=== PATIENT | male | born 1960 | race Caucasian/White ===

== ENCOUNTER → 2025-06-10 | Outpatient (CLI) | payer MEDICARE, OTHER ==
--- NOTE | 2025-06-10 11:52 | US ---
EXAMINATION TYPE: US carotid duplex BILAT DATE OF EXAM: 06/10/2025 COMPARISON: NONE CLINICAL INDICATION: Male, 65 years old with history of I65.23 CAROTID STENOSIS Z82.49 FAM HX ISCHEM HRT; Patient does not have HTN, high cholesterol, and does not smoke. Family history of heart disease . Additional History: .... TECHNIQUE: Grayscale, color Doppler and spectral Doppler evaluation of the bilateral carotid systems and vertebral arteries. Indirect Doppler criteria was utilized. FINDINGS: EXAM MEASUREMENTS: RIGHT: Peak Systolic Velocity (PSV) cm/sec ----- Right CCA: 65.1 ----- Right ICA: 65.1 ----- Right ECA: 91.9 ICA/CCA ratio: 1.0 RIGHT: End Diastole cm/sec ----- Right CCA: 18.0 ----- Right ICA: 19.7 ----- Right ECA: 14.9 LEFT: Peak Systolic Velocity (PSV) cm/sec ----- Left CCA: 79.0 ----- Left ICA: 76.5 ----- Left ECA: 73.8 ICA/CCA ratio: 1.0 LEFT: End Diastole cm/sec ----- Left CCA: 24.1 ----- Left ICA: 28.1 ----- Left ECA: 13.6 VERTEBRALS (direction of flow): Right Vertebral: Antegrade Left Vertebral: Antegrade Rhythm: Normal LINOTYPIST NOTES: No plaque or elevated velocities seen. Left sided wall thickening seen. Color Doppler imaging shows patency with blood flow throughout the carotid artery. Spectral waveforms are within normal limits. IMPRESSION: Right: Less than 50% stenosis of the carotid bifurcation. Left: Less than 50% stenosis of the carotid bifurcation. Criteria for Assigning % of Stenosis / Diameter reduction (Estimation based on the indirect measurements of the internal carotid artery velocities (ICA PSV). 1. Normal (no stenosis)=ICA PSV < 180 cm/s: ratio < 2.0: ICA EDV<40 cm/s. 2. Less than 50% stenosis=ICA PSV < 180 cm/s: ratio < 2.0: ICA EDV<40 cm/s. 3. 50 to 69% stenosis=ICA PSV of 180 to 230 cm/s: ration 2.0 ? 4.0: ICA EDV 40-100 cm/s. PSV 125-180 cm/sec and ICA/CCA PSV Ratio ? 2.0 is also consistent with 50-69% stenosis 4. Greater than 70% stenosis to near occlusion= ICA PSV > 230 cm/s: ratio > 4.0: ICA EDV > 100 cm/s. 5. Near occlusion= ICA PSV velocities may be low or undetectable: variable ratio and ICA EDV. 6. Total occlusion=unable to detect flow. [facility], , 06/10/2025 11:50 AM
--- NOTE | 2025-06-10 15:10 | CA ---
Transthoracic Echo Report Name: Mateusz Ramos Age: 65 Gender: M : 1960 Exam Date: 06/10/2025 11:23 Exam Location: [facility] Ht (in): 70 Wt (lb): 200 Ordering Physician: Zack Jon MD Attending/Referring Phys: Civil Preparedness Coordinator Duncan Valerio RDCS Procedure CPT: Indications: I65.23 CAROTID STENOSIS Z82.49 FAM HX ISCHEM HRT Cardiac Hx: Technical Quality: Good Contrast 1: Total Dose (mL): Contrast 2: Total Dose (mL): MEASUREMENTS (Male / Female) Normal Values 2D ECHO LV Diastolic Diameter PLAX 5.5 cm 4.2 - 5.9 / 3.9 - 5.3 cm LV Systolic Diameter PLAX 3.7 cm IVS Diastolic Thickness 1.0 cm 0.6 - 1.0 / 0.6 - 0.9 cm LVPW Diastolic Thickness 1.1 cm 0.6 - 1.0 / 0.6 - 0.9 cm LV Relative Wall Thickness 0.4 RV Internal Dim ED PLAX 4.1 cm LVOT Diameter 1.9 cm Aortic Root Diameter 3.1 cm LA Systolic Diameter LX 4.2 cm 3.0 - 4.0 / 2.7 - 3.8 cm LV Diastolic Volume MOD BP 137.0 cm??? 67 - 155 / 56 - 104 cm??? LV Systolic Volume MOD BP 61.4 cm??? 22 - 58 / 19 - 49 cm??? LV Ejection Fraction MOD BP 55.2 % >= 55 % LV Cardiac Index MOD BP 1911.8 cm???/min???m??? LV Diastolic Volume MOD 4C 166.6 cm??? LV Systolic Volume MOD 4C 73.3 cm??? LV Ejection Fraction MOD 4C 56.0 % LV Cardiac Index MOD 4C 2357.5 cm???/min???m??? LV Diastolic Length 4C 8.4 cm LV Systolic Length 4C 7.2 cm LV Diastolic Volume MOD 2C 110.8 cm??? LV Systolic Volume MOD 2C 51.5 cm??? LV Ejection Fraction MOD 2C 53.5 % LV Cardiac Index MOD 2C 1499.7 cm???/min???m??? LV Diastolic Length 2C 8.2 cm LV Systolic Length 2C 7.2 cm LA Volume 48.4 cm??? 18 - 58 / 22 - 52 cm??? LA Volume Index 22.7 cm???/m??? 16 - 28 cm???/m??? DOPPLER TR Peak Velocity 181.9 cm/s TR Peak Gradient 13.2 mmHg Right Atrial Pressure 10.0 mmHg Pulmonary Artery Systolic Pressu 23.2 mmHg Right Ventricular Systolic Press 23.2 mmHg FINDINGS Left Ventricle Left ventricular ejection fraction is estimated at 55-60 %. Mildly increased left ventricular systolic volume. Normal left ventricular systolic function with no obvious regional wall motion abnormalities. Left ventricular wall thickness normal. Left ventricular dilatation. Right Ventricle Moderate right ventricular dilatation. Right ventricular systolic pressure within normal limits. Right Atrium Normal right atrial size. Left Atrium Mildly increased left atrial diameter. Mitral Valve Mitral annular calcification. . No mitral stenosis, regurgitation or prolapse. Aortic Valve Trileaflet aortic valve. No aortic stenosis. Trace aortic regurgitation. Tricuspid Valve Structurally normal tricuspid valve. No tricuspid stenosis. Trace tricuspid regurgitation. Pulmonic Valve Structurally normal pulmonic valve. No pulmonic stenosis. Trace pulmonic regurgitation. Pericardium No pericardial effusion. Aorta Normal size aortic root and proximal ascending aorta. CONCLUSIONS Reason atherosclerotic heart disease LVH with preserved systolic function Previewed by: Dr. Uday Palmer MD (Electronically Signed) Final Date: 10 June 2025 15:09
== END | disposition home or self-care (01) ==
LOC: RADUSWWP 10:33
PROVIDERS: ATTEND Internal Medicine
DX: I65.23 Occlusion and stenosis of bilateral carotid arteries (principal); I25.10 Atherosclerotic heart disease of native coronary artery without angina pectoris; Z82.49 Family history of ischemic heart disease and other diseases of the circulatory system
CPT/HCPCS: 93306; 93880